=== PATIENT | male | born 1985 | race Caucasian/White ===

== ENCOUNTER 2017-10-07 13:20 | Outpatient (CLI) | payer MEDICAID ==
[2017-10-07 13:37] LABS: BASOPHILS % (AUTO) 0.6 %; EOSINOPHILS # (AUTO) 0.1 10^3/uL (0.0-0.7); EOSINOPHILS % (AUTO) 1.7 %; HGB - HEMOGLOBIN 17.1 g/dL (14.0-18.0); LYMPHOCYTES # (AUTO) 1.6 10^3/uL (1.5-3.5); LYMPHOCYTES % (AUTO) 19.8 %; MEAN CORPUSCULAR HEMOGLOBIN 32.2 pg (27.0-31.0); MEAN CORPUSCULAR HGB CONC 35.1 g/dL (32.0-36.0); MEAN CORPUSCULAR VOLUME 91.8 fL (80.0-94.0); MEAN PLATELET VOLUME 9.1 fL (7.4-11.4); MONOCYTES # (AUTO) 0.8 10^3/uL (0.0-1.0); MONOCYTES % (AUTO) 9.3 %; NEUTROPHILS # (AUTO) 5.5 10^3/uL (1.5-6.6); NEUTROPHILS % (AUTO) 68.6 %; PLT - PLATELET COUNT 265 10^3/uL (130-450); RED CELL DISTRIBUTION WIDTH 12.4 % (12.0-15.0); WHITE BLOOD COUNT 8.1 x10^3/uL (4.8-10.8)
== END 2017-10-07 13:21 | disposition home or self-care (01) ==
LOC: LAB 13:20
PROVIDERS: ATTEND Physician Assistant Medical
DX: E29.1 Testicular hypofunction (principal)
CPT/HCPCS: 36415; 84403; 85025

== ENCOUNTER 2018-05-03 07:51 | Outpatient (CLI) | payer MEDICAID ==
[2018-05-03 08:01] LABS: BASOPHILS % (AUTO) 0.6 %; EOSINOPHILS # (AUTO) 0.3 10^3/uL (0.0-0.7); EOSINOPHILS % (AUTO) 4.4 %; HGB - HEMOGLOBIN 15.7 g/dL (14.0-18.0); LYMPHOCYTES # (AUTO) 1.8 10^3/uL (1.5-3.5); LYMPHOCYTES % (AUTO) 24.4 %; MEAN CORPUSCULAR HGB CONC 34.9 g/dL (32.0-36.0); MEAN CORPUSCULAR VOLUME 91.7 fL (80.0-94.0); MEAN PLATELET VOLUME 8.9 fL (7.4-11.4); MONOCYTES # (AUTO) 0.7 10^3/uL (0.0-1.0); MONOCYTES % (AUTO) 9.6 %; NEUTROPHILS # (AUTO) 4.4 10^3/uL (1.5-6.6); PLT - PLATELET COUNT 245 10^3/uL (130-450); RED BLOOD COUNT 4.89 10^6/uL (4.70-6.10); WHITE BLOOD COUNT 7.2 x10^3/uL (4.8-10.8)
== END 2018-05-03 07:52 | disposition home or self-care (01) ==
LOC: LAB 07:51
PROVIDERS: ATTEND Physician Assistant Medical
DX: E29.1 Testicular hypofunction (principal)
CPT/HCPCS: 36415; 84403; 85025

== ENCOUNTER 2019-05-11 07:25 | Outpatient (CLI) | payer MEDICAID, OTHER ==
[2019-05-11 12:47] LABS: BASOPHILS % (AUTO) 0.5 %; EOSINOPHILS # (AUTO) 0.5 10^3/uL (0.0-0.7); EOSINOPHILS % (AUTO) 6.4 %; HGB - HEMOGLOBIN 15.4 g/dL (14.0-18.0); LYMPHOCYTES # (AUTO) 2.1 10^3/uL (1.5-3.5); LYMPHOCYTES % (AUTO) 26.3 %; MEAN CORPUSCULAR HEMOGLOBIN 30.8 pg (27.0-31.0); MEAN CORPUSCULAR HGB CONC 33.4 g/dL (32.0-36.0); MEAN CORPUSCULAR VOLUME 92.2 fL (80.0-94.0); MEAN PLATELET VOLUME 11.7 fL (7.4-11.4); MONOCYTES # (AUTO) 0.8 10^3/uL (0.0-1.0); MONOCYTES % (AUTO) 9.6 %; NEUTROPHILS # (AUTO) 4.6 10^3/uL (1.5-6.6); PLT - PLATELET COUNT 279 10^3/uL (130-450); RED CELL DISTRIBUTION WIDTH 12.1 % (12.0-15.0); WHITE BLOOD COUNT 8.1 x10^3/uL (4.8-10.8)
== END 2019-05-11 07:26 | disposition home or self-care (01) ==
LOC: LAB.N 07:25
PROVIDERS: ATTEND Physician Assistant Medical
DX: E29.1 Testicular hypofunction (principal)
CPT/HCPCS: 36415; 85025

== ENCOUNTER 2019-08-08 07:16 | Outpatient (CLI) | payer MEDICAID, OTHER ==
[2019-08-08 11:48] LABS: BASOPHILS # (AUTO) 0.1 10^3/uL (0.0-0.1); BASOPHILS % (AUTO) 0.7 %; EOSINOPHILS # (AUTO) 0.4 10^3/uL (0.0-0.7); EOSINOPHILS % (AUTO) 6.5 %; HGB - HEMOGLOBIN 13.9 g/dL (14.0-18.0); LYMPHOCYTES # (AUTO) 1.5 10^3/uL (1.5-3.5); LYMPHOCYTES % (AUTO) 22.5 %; MEAN CORPUSCULAR HEMOGLOBIN 31.2 pg (27.0-31.0); MEAN CORPUSCULAR HGB CONC 33.3 g/dL (32.0-36.0); MEAN CORPUSCULAR VOLUME 93.9 fL (80.0-94.0); MEAN PLATELET VOLUME 11.5 fL (7.4-11.4); MONOCYTES # (AUTO) 0.7 10^3/uL (0.0-1.0); MONOCYTES % (AUTO) 9.5 %; NEUTROPHILS # (AUTO) 4.1 10^3/uL (1.5-6.6); NEUTROPHILS % (AUTO) 60.4 %; PLT - PLATELET COUNT 277 10^3/uL (130-450); RED BLOOD COUNT 4.45 10^6/uL (4.70-6.10); RED CELL DISTRIBUTION WIDTH 12.1 % (12.0-15.0); WHITE BLOOD COUNT 6.8 x10^3/uL (4.8-10.8)
== END 2019-08-08 23:59 | disposition home or self-care (01) ==
LOC: LAB.N 07:16
PROVIDERS: ATTEND Physician Assistant Medical
DX: E29.1 Testicular hypofunction (principal)
CPT/HCPCS: 36415; 81599; 84402; 84403; 85025

== ENCOUNTER 2019-08-27 11:28 | Outpatient (CLI) | payer OTHER ==
--- NOTE | 2019-08-27 13:04 | Ultrasound Report ---
Reason: PELVIC PAIN Procedure Date: 08/27/2019 Accession Number: [id number] / [id number] Procedure: US - Pelvic w/Transvaginal CPT Code: Final Report FULL RESULT: EXAM: PELVIC ULTRASOUND EXAM DATE: 08/27/2019 12:22 PM. CLINICAL HISTORY: Pelvic pain for 2 weeks. Rule out ovarian cystic lesion. COMPARISON: PELVIS 11/04/2009 11:42 AM. TECHNIQUE: Realtime transabdominal pelvic scan performed to identify the uterus and adnexa and as an overview of other pelvic structures, followed by transvaginal scan to provide greater detail of the uterus and adnexa, with static image documentation. FINDINGS: Uterus: 6.9 x 2.9 x 3.8 cm, volume 39 cc. Anteverted position. Normal overall size and echotexture. Masses: None. Endometrium: 10 mm. No mass or thickening evident. Cervix: Some fluid in the endocervical canal noted. No masses. A subcentimeter nabothian cyst also noted. Right Ovary: 3.4 x 1.8 x 1.5 cm, volume 4.5 cc. Normal echotexture and blood flow. Left Ovary: 2.8 x 2.9 x 2.5 cm, volume 10.5 cc. Normal echotexture and blood flow. 2.1 cm simple cystic lesion incidentally noted. Free Fluid: None. Other: None. IMPRESSION: 1. 2.1 cm left ovarian dominant follicle or simple cyst. 2. Small fluid in endocervical canal, likely incidental. [facility]
== END 2019-08-27 11:29 | disposition home or self-care (01) ==
LOC: DI 11:28
PROVIDERS: ATTEND Physician Assistant Medical
DX: N83.292 Other ovarian cyst, left side (principal)
CPT/HCPCS: 76830; 76856